=== PATIENT | female | born 1960 | race Caucasian/White ===

== ENCOUNTER 2016-12-17 12:01 | Emergency (ER) | payer OTHER ==
[~2016-12-17] VITALS: Ht 170.2 cm; Wt 95.9 kg
[~2016-12-17 12:01] MED LIST: ASPI-496 PO; ATOR10TA9 PO; DULO60CA7 PO; FAMO-79 PO; HYDR1TAB12 PO; INSU100C SQ-INSULIN; INSU100I29 SC; INSU100V8 SQ; LISI5TAB7 PO; METF500T4 PO; OMEP40CA6 PO; OXYC-302 PO; POLY17PO5 PO; PRED10TA PO; PRED10TA14 PO; TOFA5TAB PO; WARF7.5T PO-COUM; ZOLP5TAB6 PO
[2016-12-17] MEDS ORDERED: FAMOTIDINE 20 MG/2 ML IVP ONE (13:30)
[2016-12-17] MEDS ORDERED: SODIUM CHLORIDE 0.9% 1,000ML IVBOLUS ONE (13:30)
[2016-12-17] MEDS ORDERED: ONDANSETRON 2MG/ML, 2ML IVPush ONE (13:30)
[2016-12-17] MEDS ORDERED: SODIUM CHLORIDE FLUSH 10ML SYR IVF ONE (13:30)
[2016-12-17] MEDS ORDERED: ONDANSETRON 2MG/ML, 2ML ONE (14:01)
[2016-12-17] MEDS ORDERED: FAMOTIDINE 20 MG/2 ML ONE (14:01)
[2016-12-17 14:08] LABS: HEMOGLOBIN 14.4 g/dL (11.7-16.4)
[2016-12-17 14:59] LABS: ASPARTATE AMINO TRANSFERASE 9 U/L (15-37); BLOOD UREA NITROGEN 9 mg/dL (7-18)
[2016-12-17] MEDS ORDERED: OMNIPAQUE 350 MG/ML, 100ML BOTTLE ONE (15:28)
[2016-12-17 15:41] VITALS: BP 118/67
== END 2016-12-17 17:05 | disposition home or self-care (01) ==
LOC: ED 13:36
DX: K57.32 Diverticulitis of large intestine without perforation or abscess without bleeding (principal); E10.8 Type 1 diabetes mellitus with unspecified complications; I10 Essential (primary) hypertension; M06.9 Rheumatoid arthritis, unspecified; Z90.49 Acquired absence of other specified parts of digestive tract; Z90.710 Acquired absence of both cervix and uterus
CPT/HCPCS: 36415; 74177; 80053; 81003; 83690; 85025; 96361; 96374; 96375; 99285; J2405; J7030; Q9967; S0028

== ENCOUNTER 2017-05-31 14:04 | Emergency (ER) | payer OTHER ==
[~2017-05-31] VITALS: Ht 170.2 cm; Wt 99.3 kg
[2017-05-31] MEDS ORDERED: SODIUM CHLORIDE FLUSH 10ML SYR IVF ONE (15:00)
[2017-05-31] MEDS ORDERED: SODIUM CHLORIDE 0.9% 1,000ML IVBOLUS ONE (15:00)
[2017-05-31] MEDS ORDERED: ONDANSETRON 2MG/ML, 2ML IVPush ONE (15:00)
[2017-05-31] MEDS ORDERED: MORPHINE SULFATE 4 MG/ML, 1ML IVPush PRN (15:00)
[2017-05-31 15:03] LABS: HEMATOCRIT 42.2 % (34.6-47.8); HEMOGLOBIN 13.7 g/dL (11.7-16.4); WHITE BLOOD COUNT 9.8 x10^3/uL (3.4-10)
[2017-05-31] MEDS ORDERED: ONDANSETRON 2MG/ML, 2ML ONE (15:07)
[2017-05-31] MEDS ORDERED: MORPHINE SULFATE 4 MG/ML, 1ML ONE (15:07)
[2017-05-31 15:13] LABS: ASPARTATE AMINO TRANSFERASE 20 U/L (15-37); BLOOD UREA NITROGEN 17 mg/dL (7-18)
[2017-05-31 15:35] VITALS: BP 178/95
[2017-05-31] MEDS ORDERED: OMNIPAQUE 350 MG/ML, 100ML BOTTLE ONE (18:12)
== END 2017-05-31 18:15 | disposition home or self-care (01) ==
LOC: ED 14:46
DX: R10.31 Right lower quadrant pain (principal); R19.7 Diarrhea, unspecified
CPT/HCPCS: 36415; 74177; 80053; 81003; 83690; 85025; 96361; 96374; 96375; 99285; J2405; J7030; Q9967

== ENCOUNTER 2017-10-18 13:44 | Observation (INO) | payer OTHER ==
[~2017-10-18] VITALS: Ht 170.2 cm; Wt 103.9 kg
[2017-10-18] MEDS ORDERED: SODIUM CHLORIDE FLUSH 10ML SYR IVF ONE (14:30)
[2017-10-18] MEDS ORDERED: NITROGLYCERIN SINGLE TAB 0.4 MG SL PRN (14:30)
[2017-10-18] MEDS ORDERED: MORPHINE SULFATE 4 MG/ML, 1ML IVPush PRN (14:30)
[2017-10-18] MEDS ORDERED: ONDANSETRON 2MG/ML, 2ML IVPush ONE (14:30)
[2017-10-18] MEDS ORDERED: ASPIRIN 81 MG TABLET CHEW PO ONE (14:30)
[2017-10-18] MEDS ORDERED: SODIUM CHLORIDE 0.9% 1,000ML IVBOLUS ONE (14:30)
[2017-10-18] MEDS ORDERED: NITROGLYCERIN SINGLE TAB 0.4 MG SL ONE (14:35)
[2017-10-18] MEDS ORDERED: ASPIRIN 81 MG TABLET CHEW ONE (14:35)
[2017-10-18] MEDS ORDERED: MORPHINE SULFATE 4 MG/ML, 1ML ONE (14:35)
[2017-10-18] MEDS ORDERED: ONDANSETRON 2MG/ML, 2ML ONE (14:35)
[2017-10-18 14:41] LABS: BASOPHILS # (AUTO) 0.04 x10^3/uL (0-0.1); BASOPHILS % (AUTO) 0 % (0-1); EOSINOPHILS # (AUTO) 0.12 x10^3/uL (0-0.4); EOSINOPHILS % (AUTO) 1 % (1-7); LYMPHOCYTES # (AUTO) 2.44 x10^3/uL (1-3.4); LYMPHOCYTES % (AUTO) 23 % (22-44); MD NO; MEAN CORPUSCULAR HEMOGLOBIN 28.5 pg (27.0-34.8); MEAN CORPUSCULAR VOLUME 86.3 fL (80-100); MEAN PLATELET VOLUME 8.2 fL (7.4-10.4); MONOCYTES # (AUTO) 0.96 x10^3/uL (0.2-0.8); MONOCYTES % (AUTO) 9 % (2-9); NEUTROPHILS # (AUTO) 6.97 x10^3/uL (1.8-6.8); NEUTROPHILS % (AUTO) 66 % (42-75); PLATELET COUNT 254 x10^3/uL (130-400); RED BLOOD COUNT 4.88 x10^6/uL (3.82-5.3); RED CELL DISTRIBUTION WIDTH 13.9 % (9.6-15.2)
[2017-10-18 14:48] LABS: ALBUMIN 3.6 g/dL (3.4-5.0); ANION GAP 8 mmol/L (5-15); CALCIUM 8.1 mg/dL (8.5-10.1); CHLORIDE 105 mmol/L (98-107)
[2017-10-18] MEDS ORDERED: RELAFEN PO (14:51)
[2017-10-18 14:53] LABS: ALANINE AMINOTRANSFERASE 37 U/L (12-78); ALKALINE PHOSPHATASE 114 U/L (45-117); BILIRUBIN,TOTAL 0.3 mg/dL (0.2-1.0); CREATININE 0.83 mg/dL (0.55-1.02); TOTAL PROTEIN 7.2 g/dL (6.4-8.2); TROPONIN I < 0.015 ng/mL (0.000-0.045)
[2017-10-18] MEDS ORDERED: ENALAPRILAT 1.25 MG/ML, 2ML IVPush PRN (15:30)
[2017-10-18] MEDS ORDERED: LABETALOL 5MG/ML, 20ML IVPush PRN (15:30)
[2017-10-18] MEDS ORDERED: NITROGLYCERIN 0.4 MG/SPRAY SL PRN (15:30)
[2017-10-18] MEDS ORDERED: ACETAMINOPHEN 325 MG TABLET PO PRN (15:30)
[2017-10-18] MEDS ORDERED: morphine SULFATE 10 MG/ML, 1ML IVPush PRN (15:30)
[2017-10-18] MEDS ORDERED: LORazepam 2 MG/ML, 1ML IVPush ONE (15:30)
[2017-10-18] MEDS ORDERED: NITROGLYCERIN OINT 2%, 1GM TP ONE (15:30)
[2017-10-18] MEDS ORDERED: ONDANSETRON 2MG/ML, 2ML IVPush PRN (15:30)
[2017-10-18] MEDS ORDERED: ONDANSETRON ODT 4 MG PO PRN (15:30)
[2017-10-18] MEDS ORDERED: KETOROLAC 30 MG/1 ML ONE (15:35)
[2017-10-18] MEDS ORDERED: LORazepam 2 MG/ML, 1ML ONE (15:36)
[2017-10-18] MEDS ORDERED: KETOROLAC 30 MG/1 ML IVPush ONE (16:00)
[2017-10-18 16:07] LABS: TROPONIN I < 0.015 ng/mL (0.000-0.045)
[2017-10-18 16:34] VITALS: BP 110/72
[2017-10-18] MEDS: HYDROcodone/APAP 5/325 TABLET PO PRN ×2 (17:19→22:01)
[2017-10-18] MEDS: METOPROLOL TARTRATE 25 MG TABLET PO SCH (17:21)
[2017-10-18] MEDS: INSULIN REGULAR 100 UNITS/ML, 3ML VIAL SQ-INSULIN SCH ×2 (17:21→22:08)
[2017-10-18 18:58] LABS: FREE T4 (FREE THYROXINE) 0.95 ng/dL (0.76-1.46); THYROID STIMULATING HORMONE 1.01 mIU/L (0.358-3.740)
[2017-10-18] MEDS ORDERED: NITR100C6 PO (20:01)
[2017-10-18 21:19] LABS: TROPONIN I < 0.015 ng/mL (0.000-0.045)
[2017-10-18] MEDS: (Tofacitinib Citrate** (Xeljanz**) 5 MG) PO SCH (22:02)
[2017-10-18] MEDS: NITROFURANTOIN (MACROBID) 100 MG CAPSULE PO SCH (22:02)
[2017-10-18] MEDS: INSULIN GLARGINE 100 UNITS/ML, PEN SQ-INSULIN SCH (22:07)
[2017-10-18] MEDS ORDERED: HYDR-879 PO (22:32)
[2017-10-18] MEDS ORDERED: CYCL-259 PO (22:32)
[2017-10-18 22:50] VITALS: BP 100/67
[2017-10-18 23:00] VITALS: BP 135/89
[2017-10-18] MEDS ORDERED: MAGNESIUM SULFATE PMX 2GM/50ML 50 ML IV ONE (23:30)
[2017-10-18] MEDS ORDERED: DILTIAZEM 5 MG/ML, 5ML IVPush ONE (23:30)
[2017-10-19] MEDS ORDERED: DILTIAZEM 125 MG in SODIUM CHLORIDE 0.9% 100 ML IV PRN
[2017-10-19 00:08] VITALS: BP 107/71
[2017-10-19] MEDS: ENOXAPARIN 100 MG/ML SQ SCH ×2 (01:10→14:14)
[2017-10-19] MEDS: TEMAZEPAM 15 MG CAPSULE PO PRN ×2 (01:22→23:40)
[2017-10-19 01:30] VITALS: BP 101/69
[2017-10-19] MEDS ORDERED: DIGOXIN 0.25 MG/ML, 2ML IVPush ONE (03:00)
[2017-10-19 05:43] LABS: HEMOGLOBIN A1C 8.2 % (4.2-6.3)
[2017-10-19 05:49] LABS: CHOL/HDL RATIO 3.6
[2017-10-19] MEDS: METOPROLOL TARTRATE 25 MG TABLET PO SCH ×2 (06:41→18:03)
[2017-10-19] MEDS: ASPIRIN 325 MG TABLET EC PO SCH (06:44)
[2017-10-19] MEDS: INSULIN REGULAR 100 UNITS/ML, 3ML VIAL SQ-INSULIN SCH ×4 (07:00→21:10)
[2017-10-19 07:42] VITALS: BP 88/62
[2017-10-19] MEDS: (Tofacitinib Citrate** (Xeljanz**) 5 MG) PO SCH ×2 (08:04→20:53)
[2017-10-19] MEDS: NITROFURANTOIN (MACROBID) 100 MG CAPSULE PO SCH ×3 (08:05→20:55)
[2017-10-19] MEDS: OMEPRAZOLE 20 MG CAPSULE.DR PO SCH (08:45)
[2017-10-19] MEDS ORDERED: REGADENOSON 0.4 MG/5 ML SYRINGE ONE (11:47)
[2017-10-19 14:10] VITALS: BP 121/81
[2017-10-19 18:46] VITALS: BP 135/79
[2017-10-19 20:34] VITALS: BP 123/77
[2017-10-19] MEDS: HYDROcodone/APAP 5/325 TABLET PO PRN ×2 (20:53→23:40)
[2017-10-19] MEDS: INSULIN GLARGINE 100 UNITS/ML, PEN SQ-INSULIN SCH (21:10)
[2017-10-20] MEDS: ENOXAPARIN 100 MG/ML SQ SCH (00:23)
[2017-10-20 03:30] VITALS: BP 138/72
[2017-10-20] MEDS: METOPROLOL TARTRATE 25 MG TABLET PO SCH (06:25)
[2017-10-20] MEDS: ASPIRIN 325 MG TABLET EC PO SCH (06:25)
[2017-10-20] MEDS: INSULIN REGULAR 100 UNITS/ML, 3ML VIAL SQ-INSULIN SCH (07:00)
[2017-10-20 07:39] VITALS: BP 103/67
[2017-10-20] MEDS: (Tofacitinib Citrate** (Xeljanz**) 5 MG) PO SCH (07:58)
[2017-10-20] MEDS: OMEPRAZOLE 20 MG CAPSULE.DR PO SCH (07:58)
[2017-10-20] MEDS: NITROFURANTOIN (MACROBID) 100 MG CAPSULE PO SCH (07:58)
[2017-10-20] MEDS ORDERED: ASPI-650 PO (08:41)
[2017-10-20] MEDS ORDERED: METO25TA35 PO (09:01)
[2017-10-20 09:38] VITALS: BP 131/77
== END 2017-10-20 10:25 | disposition home or self-care (01) ==
LOC: ED 15:13 → EDLOC 15:14 → INTOOBSV 15:14 → ED 15:36 → 5SO 15:45 → UNDOADMIN 15:45 → 5SO 20:49 → DCLOUNGE 10-20 10:12
PROVIDERS: ADMIT Internal Medicine; ATTEND Internal Medicine
DX: I20.9 Angina pectoris, unspecified (principal); I16.0 Hypertensive urgency; R94.31 Abnormal electrocardiogram [ECG] [EKG]; M06.9 Rheumatoid arthritis, unspecified; E11.65 Type 2 diabetes mellitus with hyperglycemia; E66.3 Overweight; I48.91 Unspecified atrial fibrillation; G89.29 Other chronic pain; R00.1 Bradycardia, unspecified; K57.90 Diverticulosis of intestine, part unspecified, without perforation or abscess without bleeding; N39.0 Urinary tract infection, site not specified; F11.90 Opioid use, unspecified, uncomplicated; Z68.36 Body mass index [BMI] 36.0-36.9, adult; Z79.891 Long term (current) use of opiate analgesic; Z82.49 Family history of ischemic heart disease and other diseases of the circulatory system; Z88.8 Allergy status to other drugs, medicaments and biological substances
CPT/HCPCS: 36415; 71045; 78452; 80053; 80061; 82962; 83036; 83735; 84439; 84443; 84484; 85025; 85379; 93005; 93017; 93306; 96365; 96366; 96368; 96372; 96375; 96376; 99285; A9502; C9898; G0378; J1160; J1650; J1815; J1885; J2060; J2405; J2785; J3475; J7030

== ENCOUNTER 2017-11-02 22:26 | Emergency (ER) | payer OTHER ==
[~2017-11-02] VITALS: Ht 170.2 cm; Wt 100.0 kg
[~2017-11-02 22:26] MED LIST changes: +ASPI-650 PO; +CYCL-259 PO; +HYDR-879 PO; +METO25TA35 PO; +NITR100C6 PO; +RELAFEN PO
[2017-11-02 23:29] LABS: BASOPHILS # (AUTO) 0.04 x10^3/uL (0-0.1); BASOPHILS % (AUTO) 0 % (0-1); EOSINOPHILS # (AUTO) 0.23 x10^3/uL (0-0.4); EOSINOPHILS % (AUTO) 2 % (1-7); LYMPHOCYTES # (AUTO) 3.36 x10^3/uL (1-3.4); LYMPHOCYTES % (AUTO) 33 % (22-44); MD NO; MEAN CORPUSCULAR HEMOGLOBIN 28.1 pg (27.0-34.8); MEAN CORPUSCULAR HGB CONC 32.7 g/dL (32.4-35.8); MEAN CORPUSCULAR VOLUME 85.9 fL (80-100); MEAN PLATELET VOLUME 8.1 fL (7.4-10.4); MONOCYTES # (AUTO) 0.84 x10^3/uL (0.2-0.8); MONOCYTES % (AUTO) 8 % (2-9); NEUTROPHILS # (AUTO) 5.67 x10^3/uL (1.8-6.8); NEUTROPHILS % (AUTO) 56 % (42-75); PLATELET COUNT 303 x10^3/uL (130-400); RED BLOOD COUNT 4.71 x10^6/uL (3.82-5.3); RED CELL DISTRIBUTION WIDTH 13.7 % (9.6-15.2)
[2017-11-02 23:39] LABS: ALBUMIN 3.5 g/dL (3.4-5.0); ANION GAP 5 mmol/L (5-15); CALCIUM 8.7 mg/dL (8.5-10.1); CHLORIDE 103 mmol/L (98-107); CREATININE 0.85 mg/dL (0.55-1.02)
[2017-11-02 23:43] LABS: TROPONIN I < 0.015 ng/mL (0.000-0.045)
[2017-11-03] MEDS ORDERED: MORPHINE SULFATE 4 MG/ML, 1ML IVPush ONE (01:00)
[2017-11-03] MEDS ORDERED: MORPHINE SULFATE 4 MG/ML, 1ML ONE (01:25)
[2017-11-03 02:43] LABS: TROPONIN I < 0.015 ng/mL (0.000-0.045)
[2017-11-03 03:10] VITALS: BP 135/55
== END 2017-11-03 03:12 | disposition home or self-care (01) ==
LOC: ED 22:41
DX: R07.9 Chest pain, unspecified (principal); I10 Essential (primary) hypertension; E10.9 Type 1 diabetes mellitus without complications; I48.91 Unspecified atrial fibrillation; M06.9 Rheumatoid arthritis, unspecified; Z79.4 Long term (current) use of insulin; Z90.49 Acquired absence of other specified parts of digestive tract; Z90.710 Acquired absence of both cervix and uterus
CPT/HCPCS: 36415; 71045; 80048; 82040; 84484; 85025; 93005; 96374